=== PATIENT | male | born 1960 | race Caucasian/White ===

== ENCOUNTER 2021-06-21 11:26 | Inpatient (IN) | payer OTHER ==
[2021-06-21 13:00] VITALS: BMI 21.2
[2021-06-21] MEDS ORDERED: ONDANSETRON *ODT* 4 MG TABLET SL PRN (13:52)
[2021-06-21] MEDS ORDERED: BISMUTH SUBSALICYLATE 524 MG/30 ML PO PRN (13:52)
[2021-06-21] MEDS ORDERED: MAGNESIUM HYDROX 2400MG/30ML ORAL SUSPENSION 30 ML CUP PO PRN (13:52)
[2021-06-21] MEDS ORDERED: LORazepam 1 MG TABLET PO PRN (13:52)
[2021-06-21] MEDS ORDERED: MAGNESIUM CITRATE 300 ML BOTTLE PO PRN (13:52)
[2021-06-21] MEDS ORDERED: MENTHOL/PHENOL 1 EACH UD MM PRN (13:52)
[2021-06-21] MEDS ORDERED: NICOTINE POLACRILEX 2 MG GUM BUC PRN (13:52)
[2021-06-21] MEDS ORDERED: ACETAMINOPHEN 325 MG TABLET (FP) PO PRN ×2 (13:52)
[2021-06-21] MEDS ORDERED: METHOCARBAMOL 500 MG TABLET PO PRN (13:52)
[2021-06-21] MEDS ORDERED: MAG HYDROX/AL HYDROX/SIMETH 30 ML UNIT-DOSE CUP PO PRN (13:52)
[2021-06-21] MEDS ORDERED: IBUPROFEN 400 MG TABLET (FP) PO PRN (13:52)
[2021-06-21] MEDS: LORazepam 2 MG TABLET PO SCH ×2 (17:28→22:21)
[2021-06-21] MEDS: hydrOXYzine PAMOATE 25 MG CAPSULE (FP) PO SCH ×4 (17:28→22:20)
[2021-06-21] MEDS: MELATONIN 5 MG TABLETS PO SCH (22:20)
[2021-06-21] MEDS: THIAMINE HCL 100 MG TABLET (FP) PO SCH (22:20)
[2021-06-22] MEDS: hydrOXYzine PAMOATE 25 MG CAPSULE (FP) PO SCH ×5 (05:49→22:21)
[2021-06-22] MEDS: LORazepam 2 MG TABLET PO SCH ×4 (05:49→22:21)
[2021-06-22] MEDS: PRENATAL VITAMINS W/ FOLIC ACID TABLET (FP) PO SCH (10:35)
[2021-06-22] MEDS: NICOTINE 7 MG/24 HOURS TOPICAL PATCH TD SCH (10:35)
[2021-06-22] MEDS: SERTRALINE HCL 50 MG TABLET (FP) PO SCH (13:43)
[2021-06-22 14:56] LABS: HEMATOCRIT 39.9 % (35.4-49); HEMOGLOBIN 13.4 GM/dL (11.7-16.9); MCH 29.1 pg (25.7-33.7); MCHC 33.6 g/dl (32.0-35.9); MEAN CELL VOLUME 86.5 fl (80-96); MEAN PLT VOLUME 8.1 fl (7.5-11.1); PLATELET COUNT 249 10^3/uL (134-434); RBC 4.61 M/mm3 (4.00-5.60); RDW 14.8 % (11.9-15.9); WHITE BLOOD COUNT 5.6 K/mm3 (4.0-10.0)
[2021-06-22 15:01] LABS: CALCIUM 8.8 mg/dL (8.5-10.1)
[2021-06-22 15:02] LABS: ALBUMIN 3.7 g/dl (3.4-5.0); BLOOD UREA NITROGEN 11.3 mg/dL (7-18)
[2021-06-22 15:05] LABS: CREATININE 0.8 mg/dL (0.55-1.3)
[2021-06-22 15:06] LABS: BILIRUBIN,TOTAL 0.6 mg/dL (0.2-1)
[2021-06-22 16:07] LABS: HIV INTERPRETATION NEGATIVE (NEGATIVE)
[2021-06-22] MEDS: THIAMINE HCL 100 MG TABLET (FP) PO SCH (22:21)
[2021-06-22] MEDS: MELATONIN 5 MG TABLETS PO SCH (22:21)
[2021-06-22] MEDS: risperiDONE 1 MG TABLET PO SCH (22:21)
[2021-06-23] MEDS: LORazepam 1 MG TABLET PO SCH ×4 (06:42→22:25)
[2021-06-23] MEDS: hydrOXYzine PAMOATE 25 MG CAPSULE (FP) PO SCH ×2 (06:43→10:17)
[2021-06-23] MEDS: PRENATAL VITAMINS W/ FOLIC ACID TABLET (FP) PO SCH (10:17)
[2021-06-23] MEDS: SERTRALINE HCL 50 MG TABLET (FP) PO SCH (10:17)
[2021-06-23] MEDS: NICOTINE 7 MG/24 HOURS TOPICAL PATCH TD SCH (10:17)
[2021-06-23] MEDS ORDERED: hydrOXYzine PAMOATE 25 MG CAPSULE (FP) PO PRN (12:32)
[2021-06-23] MEDS: TAMSULOSIN HCL 0.4 MG CAP PO SCH (18:04)
[2021-06-23] MEDS: MELATONIN 5 MG TABLETS PO SCH (22:25)
[2021-06-23] MEDS: OXYBUTYNIN CHLORIDE 5 MG TABLET PO SCH (22:25)
[2021-06-23] MEDS: risperiDONE 1 MG TABLET PO SCH (22:25)
[2021-06-23] MEDS: THIAMINE HCL 100 MG TABLET (FP) PO SCH (22:25)
[2021-06-24] MEDS ORDERED: LORazepam 0.5 MG TABLET PO PRN
[2021-06-24] MEDS: LORazepam 0.5 MG TABLET PO SCH ×4 (06:07→22:26)
[2021-06-24] MEDS: SERTRALINE HCL 50 MG TABLET (FP) PO SCH (10:24)
[2021-06-24] MEDS: NICOTINE 7 MG/24 HOURS TOPICAL PATCH TD SCH (10:24)
[2021-06-24] MEDS: TAMSULOSIN HCL 0.4 MG CAP PO SCH (10:24)
[2021-06-24] MEDS: PRENATAL VITAMINS W/ FOLIC ACID TABLET (FP) PO SCH (10:24)
[2021-06-24] MEDS: OXYBUTYNIN CHLORIDE 5 MG TABLET PO SCH ×2 (10:24→22:26)
[2021-06-24] MEDS: risperiDONE 1 MG TABLET PO SCH (22:24)
[2021-06-24] MEDS: THIAMINE HCL 100 MG TABLET (FP) PO SCH (22:25)
[2021-06-24] MEDS: MELATONIN 5 MG TABLETS PO SCH (22:25)
[2021-06-25] MEDS ORDERED: LORazepam 0.5 MG TABLET PO ONE (05:00)
[2021-06-25 09:17] VITALS: BP 133/83; PULSE 57; TEMP 96.9
[2021-06-25] MEDS: NICOTINE 7 MG/24 HOURS TOPICAL PATCH TD SCH (10:18)
[2021-06-25] MEDS: PRENATAL VITAMINS W/ FOLIC ACID TABLET (FP) PO SCH (10:18)
[2021-06-25] MEDS: SERTRALINE HCL 50 MG TABLET (FP) PO SCH (10:18)
[2021-06-25] MEDS: OXYBUTYNIN CHLORIDE 5 MG TABLET PO SCH (10:18)
[2021-06-25] MEDS: TAMSULOSIN HCL 0.4 MG CAP PO SCH (10:19)
== END 2021-06-25 11:36 | disposition other institution (70) | DRG 775 ==
LOC: YASAS 11:26 → Y3N 15:11
PROVIDERS: ADMIT Allergy & Immunology; ATTEND Allergy & Immunology
PROC: HZ2ZZZZ Detoxification Services for Substance Abuse Treatment (ICD-10-PCS; principal; 2021-06-21)
DX: F10.230 Alcohol dependence with withdrawal, uncomplicated (principal); F12.20 Cannabis dependence, uncomplicated; F17.210 Nicotine dependence, cigarettes, uncomplicated; F10.282 Alcohol dependence with alcohol-induced sleep disorder; F10.24 Alcohol dependence with alcohol-induced mood disorder; F20.9 Schizophrenia, unspecified; F31.9 Bipolar disorder, unspecified; F99 Mental disorder, not otherwise specified; J45.909 Unspecified asthma, uncomplicated; E78.5 Hyperlipidemia, unspecified; N40.0 Benign prostatic hyperplasia without lower urinary tract symptoms; M54.5 Low back pain; G89.29 Other chronic pain; R76.11 Nonspecific reaction to tuberculin skin test without active tuberculosis; Z91.018 Allergy to other foods
CPT/HCPCS: 36415; 71046-TC-FY; 80053; 85027; 86780; 87389; 93005; 93010; C9803; J2794; U0003; U0005

== ENCOUNTER 2021-06-25 11:22 | Inpatient (IN) | payer OTHER ==
[2021-06-25] MEDS ORDERED: ACETAMINOPHEN 325 MG TABLET (FP) PO PRN (14:29)
[2021-06-25] MEDS ORDERED: MAGNESIUM HYDROX 2400MG/30ML ORAL SUSPENSION 30 ML CUP PO PRN (14:29)
[2021-06-25] MEDS ORDERED: P-EPHED 60MG/TRIPROLIDI 2.5MG TABLET PO PRN (14:29)
[2021-06-25] MEDS ORDERED: guaiFENesin 200 MG/10 ML 10 ML UNIT-DOSE CUPS PO PRN (14:29)
[2021-06-25] MEDS ORDERED: NICOTINE POLACRILEX 2 MG GUM BUC PRN (14:29)
[2021-06-25] MEDS ORDERED: MAG HYDROX/AL HYDROX/SIMETH 30 ML UNIT-DOSE CUP PO PRN (14:29)
[2021-06-25] MEDS ORDERED: MAGNESIUM CITRATE 300 ML BOTTLE PO PRN (14:29)
[2021-06-25] MEDS ORDERED: IBUPROFEN 400 MG TABLET (FP) PO PRN (14:29)
[2021-06-25] MEDS ORDERED: LOPERAMIDE HCL 2 MG CAPSULE PO PRN (14:29)
[2021-06-25] MEDS ORDERED: MENTHOL/PHENOL 1 EACH UD MM PRN (14:29)
[2021-06-25] MEDS: hydrOXYzine PAMOATE 25 MG CAPSULE (FP) PO SCH ×2 (17:50→21:09)
[2021-06-25] MEDS: THIAMINE HCL 100 MG TABLET (FP) PO SCH (21:09)
[2021-06-25] MEDS: risperiDONE 2 MG TABLET PO SCH (21:09)
[2021-06-25] MEDS: MELATONIN 5 MG TABLETS PO SCH (21:09)
[2021-06-26] MEDS: hydrOXYzine PAMOATE 25 MG CAPSULE (FP) PO SCH ×5 (06:23→21:21)
[2021-06-26] MEDS ORDERED: risperiDONE 2 MG TABLET PO SCH (10:00)
[2021-06-26] MEDS: PRENATAL VITAMINS W/ FOLIC ACID TABLET (FP) PO SCH (10:20)
[2021-06-26] MEDS: NICOTINE 7 MG/24 HOURS TOPICAL PATCH TD SCH (10:21)
[2021-06-26] MEDS: TAMSULOSIN HCL 0.4 MG CAP PO SCH (10:21)
[2021-06-26] MEDS: SERTRALINE HCL 50 MG TABLET (FP) PO SCH (10:21)
[2021-06-26] MEDS ORDERED: PNEUMOCOCCAL 23 VACCINE 0.5 ML VIAL IM ONE (12:00)
[2021-06-26] MEDS: THIAMINE HCL 100 MG TABLET (FP) PO SCH (21:21)
[2021-06-26] MEDS: MELATONIN 5 MG TABLETS PO SCH (21:21)
[2021-06-26] MEDS: risperiDONE 2 MG TABLET PO SCH (21:22)
[2021-06-27] MEDS: hydrOXYzine PAMOATE 25 MG CAPSULE (FP) PO SCH ×5 (06:29→21:03)
[2021-06-27] MEDS: TAMSULOSIN HCL 0.4 MG CAP PO SCH (08:50)
[2021-06-27] MEDS: PRENATAL VITAMINS W/ FOLIC ACID TABLET (FP) PO SCH (10:18)
[2021-06-27] MEDS: SERTRALINE HCL 50 MG TABLET (FP) PO SCH (10:18)
[2021-06-27] MEDS: NICOTINE 7 MG/24 HOURS TOPICAL PATCH TD SCH (10:18)
[2021-06-27] MEDS: MELATONIN 5 MG TABLETS PO SCH (21:03)
[2021-06-27] MEDS: risperiDONE 2 MG TABLET PO SCH (21:03)
[2021-06-27] MEDS: THIAMINE HCL 100 MG TABLET (FP) PO SCH (21:03)
[2021-06-28] MEDS: hydrOXYzine PAMOATE 25 MG CAPSULE (FP) PO SCH ×5 (06:24→21:37)
[2021-06-28] MEDS: TAMSULOSIN HCL 0.4 MG CAP PO SCH (07:31)
[2021-06-28] MEDS: PRENATAL VITAMINS W/ FOLIC ACID TABLET (FP) PO SCH (09:50)
[2021-06-28] MEDS: NICOTINE 7 MG/24 HOURS TOPICAL PATCH TD SCH (09:50)
[2021-06-28] MEDS: SERTRALINE HCL 50 MG TABLET (FP) PO SCH (09:50)
[2021-06-28] MEDS: THIAMINE HCL 100 MG TABLET (FP) PO SCH (21:37)
[2021-06-28] MEDS: OXYBUTYNIN CHLORIDE 5 MG TABLET PO SCH (21:37)
[2021-06-28] MEDS: MELATONIN 5 MG TABLETS PO SCH (21:37)
[2021-06-28] MEDS: risperiDONE 2 MG TABLET PO SCH (21:37)
[2021-06-29] MEDS: hydrOXYzine PAMOATE 25 MG CAPSULE (FP) PO SCH ×5 (06:40→21:07)
[2021-06-29] MEDS: TAMSULOSIN HCL 0.4 MG CAP PO SCH (07:32)
[2021-06-29] MEDS: PRENATAL VITAMINS W/ FOLIC ACID TABLET (FP) PO SCH (09:38)
[2021-06-29] MEDS: SERTRALINE HCL 50 MG TABLET (FP) PO SCH (09:39)
[2021-06-29] MEDS: OXYBUTYNIN CHLORIDE 5 MG TABLET PO SCH ×2 (09:39→21:07)
[2021-06-29] MEDS: NICOTINE 7 MG/24 HOURS TOPICAL PATCH TD SCH (10:22)
[2021-06-29] MEDS: risperiDONE 2 MG TABLET PO SCH (21:07)
[2021-06-29] MEDS: MELATONIN 5 MG TABLETS PO SCH (21:07)
[2021-06-29] MEDS: THIAMINE HCL 100 MG TABLET (FP) PO SCH (21:07)
[2021-06-30] MEDS: hydrOXYzine PAMOATE 25 MG CAPSULE (FP) PO SCH ×5 (06:35→21:25)
[2021-06-30] MEDS: SERTRALINE HCL 50 MG TABLET (FP) PO SCH (09:55)
[2021-06-30] MEDS: OXYBUTYNIN CHLORIDE 5 MG TABLET PO SCH ×2 (09:55→21:25)
[2021-06-30] MEDS: PRENATAL VITAMINS W/ FOLIC ACID TABLET (FP) PO SCH (09:55)
[2021-06-30] MEDS: NICOTINE 7 MG/24 HOURS TOPICAL PATCH TD SCH (09:55)
[2021-06-30] MEDS: TAMSULOSIN HCL 0.4 MG CAP PO SCH (09:55)
[2021-06-30] MEDS: THIAMINE HCL 100 MG TABLET (FP) PO SCH (21:25)
[2021-06-30] MEDS: MELATONIN 5 MG TABLETS PO SCH (21:25)
[2021-06-30] MEDS: risperiDONE 2 MG TABLET PO SCH (21:25)
[2021-07-01] MEDS: hydrOXYzine PAMOATE 25 MG CAPSULE (FP) PO SCH ×5 (06:28→21:07)
[2021-07-01] MEDS: TAMSULOSIN HCL 0.4 MG CAP PO SCH (08:45)
[2021-07-01] MEDS: SERTRALINE HCL 50 MG TABLET (FP) PO SCH (09:45)
[2021-07-01] MEDS: PRENATAL VITAMINS W/ FOLIC ACID TABLET (FP) PO SCH (09:45)
[2021-07-01] MEDS: OXYBUTYNIN CHLORIDE 5 MG TABLET PO SCH ×2 (09:45→21:07)
[2021-07-01] MEDS: NICOTINE 7 MG/24 HOURS TOPICAL PATCH TD SCH (09:47)
[2021-07-01] MEDS: THIAMINE HCL 100 MG TABLET (FP) PO SCH (21:07)
[2021-07-01] MEDS: MELATONIN 5 MG TABLETS PO SCH (21:07)
[2021-07-01] MEDS: risperiDONE 2 MG TABLET PO SCH (21:07)
[2021-07-02] MEDS: hydrOXYzine PAMOATE 25 MG CAPSULE (FP) PO SCH ×5 (06:30→21:22)
[2021-07-02] MEDS: TAMSULOSIN HCL 0.4 MG CAP PO SCH (08:40)
[2021-07-02] MEDS: PRENATAL VITAMINS W/ FOLIC ACID TABLET (FP) PO SCH (10:04)
[2021-07-02] MEDS: NICOTINE 7 MG/24 HOURS TOPICAL PATCH TD SCH (10:04)
[2021-07-02] MEDS: OXYBUTYNIN CHLORIDE 5 MG TABLET PO SCH ×2 (10:04→21:23)
[2021-07-02] MEDS: SERTRALINE HCL 50 MG TABLET (FP) PO SCH (10:26)
[2021-07-02] MEDS: MELATONIN 5 MG TABLETS PO SCH (21:22)
[2021-07-02] MEDS: risperiDONE 2 MG TABLET PO SCH (21:22)
[2021-07-02] MEDS: THIAMINE HCL 100 MG TABLET (FP) PO SCH (21:22)
[2021-07-02] MEDS ORDERED: PT OWN MED DRAWER 7, Y5N ONE (21:23)
[2021-07-03] MEDS: hydrOXYzine PAMOATE 25 MG CAPSULE (FP) PO SCH ×5 (06:21→21:06)
[2021-07-03] MEDS: NICOTINE 7 MG/24 HOURS TOPICAL PATCH TD SCH (09:54)
[2021-07-03] MEDS: PRENATAL VITAMINS W/ FOLIC ACID TABLET (FP) PO SCH (09:54)
[2021-07-03] MEDS: SERTRALINE HCL 50 MG TABLET (FP) PO SCH (09:54)
[2021-07-03] MEDS: OXYBUTYNIN CHLORIDE 5 MG TABLET PO SCH ×2 (09:55→21:07)
[2021-07-03] MEDS ORDERED: PT OWN MED DRAWER 7, Y5N ONE (09:55)
[2021-07-03] MEDS: TAMSULOSIN HCL 0.4 MG CAP PO SCH (09:56)
[2021-07-03] MEDS: THIAMINE HCL 100 MG TABLET (FP) PO SCH (21:07)
[2021-07-03] MEDS: MELATONIN 5 MG TABLETS PO SCH (21:07)
[2021-07-03] MEDS: risperiDONE 2 MG TABLET PO SCH (21:07)
[2021-07-04] MEDS: hydrOXYzine PAMOATE 25 MG CAPSULE (FP) PO SCH ×5 (06:35→21:11)
[2021-07-04] MEDS: TAMSULOSIN HCL 0.4 MG CAP PO SCH (07:51)
[2021-07-04] MEDS: NICOTINE 7 MG/24 HOURS TOPICAL PATCH TD SCH (10:13)
[2021-07-04] MEDS: SERTRALINE HCL 50 MG TABLET (FP) PO SCH (10:13)
[2021-07-04] MEDS: PRENATAL VITAMINS W/ FOLIC ACID TABLET (FP) PO SCH (10:13)
[2021-07-04] MEDS: OXYBUTYNIN CHLORIDE 5 MG TABLET PO SCH ×2 (10:14→21:11)
[2021-07-04] MEDS: risperiDONE 2 MG TABLET PO SCH (21:11)
[2021-07-04] MEDS: MELATONIN 5 MG TABLETS PO SCH (21:11)
[2021-07-04] MEDS: THIAMINE HCL 100 MG TABLET (FP) PO SCH (21:11)
[2021-07-05] MEDS: hydrOXYzine PAMOATE 25 MG CAPSULE (FP) PO SCH ×5 (06:14→21:08)
[2021-07-05] MEDS: TAMSULOSIN HCL 0.4 MG CAP PO SCH (10:02)
[2021-07-05] MEDS: OXYBUTYNIN CHLORIDE 5 MG TABLET PO SCH ×2 (10:02→21:08)
[2021-07-05] MEDS: PRENATAL VITAMINS W/ FOLIC ACID TABLET (FP) PO SCH (10:02)
[2021-07-05] MEDS: SERTRALINE HCL 50 MG TABLET (FP) PO SCH (10:02)
[2021-07-05] MEDS: NICOTINE 7 MG/24 HOURS TOPICAL PATCH TD SCH (10:02)
[2021-07-05] MEDS: MELATONIN 5 MG TABLETS PO SCH (21:07)
[2021-07-05] MEDS: THIAMINE HCL 100 MG TABLET (FP) PO SCH (21:07)
[2021-07-05] MEDS: risperiDONE 2 MG TABLET PO SCH (21:08)
[2021-07-06] MEDS: hydrOXYzine PAMOATE 25 MG CAPSULE (FP) PO SCH ×5 (06:19→21:33)
[2021-07-06] MEDS: NICOTINE 7 MG/24 HOURS TOPICAL PATCH TD SCH (10:12)
[2021-07-06] MEDS: SERTRALINE HCL 50 MG TABLET (FP) PO SCH (10:12)
[2021-07-06] MEDS: OXYBUTYNIN CHLORIDE 5 MG TABLET PO SCH ×2 (10:12→21:33)
[2021-07-06] MEDS: PRENATAL VITAMINS W/ FOLIC ACID TABLET (FP) PO SCH (10:12)
[2021-07-06] MEDS: TAMSULOSIN HCL 0.4 MG CAP PO SCH (10:12)
[2021-07-06] MEDS: MELATONIN 5 MG TABLETS PO SCH (21:33)
[2021-07-06] MEDS: risperiDONE 2 MG TABLET PO SCH (21:33)
[2021-07-06] MEDS: THIAMINE HCL 100 MG TABLET (FP) PO SCH (21:33)
[2021-07-07] MEDS: hydrOXYzine PAMOATE 25 MG CAPSULE (FP) PO SCH ×5 (06:23→21:21)
[2021-07-07] MEDS ORDERED: MASKS NR ONE (06:25)
[2021-07-07] MEDS: TAMSULOSIN HCL 0.4 MG CAP PO SCH (08:47)
[2021-07-07] MEDS: PRENATAL VITAMINS W/ FOLIC ACID TABLET (FP) PO SCH (09:46)
[2021-07-07] MEDS: OXYBUTYNIN CHLORIDE 5 MG TABLET PO SCH ×2 (09:47→21:20)
[2021-07-07] MEDS: NICOTINE 7 MG/24 HOURS TOPICAL PATCH TD SCH (09:47)
[2021-07-07] MEDS: SERTRALINE HCL 50 MG TABLET (FP) PO SCH (10:10)
[2021-07-07] MEDS: risperiDONE 2 MG TABLET PO SCH (21:20)
[2021-07-07] MEDS: THIAMINE HCL 100 MG TABLET (FP) PO SCH (21:20)
[2021-07-07] MEDS: MELATONIN 5 MG TABLETS PO SCH (21:21)
[2021-07-08] MEDS ORDERED: PT OWN MED DRAWER 7, Y5N ONE ×3 (03:11→19:12)
[2021-07-08] MEDS: hydrOXYzine PAMOATE 25 MG CAPSULE (FP) PO SCH ×5 (06:10→21:37)
[2021-07-08] MEDS: TAMSULOSIN HCL 0.4 MG CAP PO SCH (07:58)
[2021-07-08] MEDS: NICOTINE 7 MG/24 HOURS TOPICAL PATCH TD SCH (10:30)
[2021-07-08] MEDS: PRENATAL VITAMINS W/ FOLIC ACID TABLET (FP) PO SCH (10:30)
[2021-07-08] MEDS: SERTRALINE HCL 50 MG TABLET (FP) PO SCH (10:30)
[2021-07-08] MEDS: OXYBUTYNIN CHLORIDE 5 MG TABLET PO SCH ×2 (10:30→21:37)
[2021-07-08 17:24] LABS: EPI CELLS 1 /uL (0-25.1); HYALINE CASTS 0 /uL (0-3.1); URINE APPEARANCE CLEAR; URINE BACTERIA 1 /uL (0-1359); URINE BILIRUBIN NEGATIVE (NEGATIVE); URINE COLOR YELLOW; URINE GLUCOSE (UA) NEGATIVE (NEGATIVE); URINE KETONE NEGATIVE (NEGATIVE); URINE LEUK ESTERASE NEGATIVE (NEGATIVE); URINE NITRITE NEGATIVE (NEGATIVE); URINE PROTEIN NEGATIVE (NEGATIVE); URINE RBC 25 /uL (0-23.9); URINE UROBILINOGEN 0.2 mg/dL (0.2-1.0); URINE WBC 6 /uL (0-25.8)
[2021-07-08] MEDS: MELATONIN 5 MG TABLETS PO SCH (21:37)
[2021-07-08] MEDS: THIAMINE HCL 100 MG TABLET (FP) PO SCH (21:37)
[2021-07-08] MEDS: risperiDONE 2 MG TABLET PO SCH (21:37)
[2021-07-09] MEDS: hydrOXYzine PAMOATE 25 MG CAPSULE (FP) PO SCH ×5 (06:24→21:12)
[2021-07-09] MEDS: TAMSULOSIN HCL 0.4 MG CAP PO SCH (07:31)
[2021-07-09] MEDS: PRENATAL VITAMINS W/ FOLIC ACID TABLET (FP) PO SCH (10:18)
[2021-07-09] MEDS: SERTRALINE HCL 50 MG TABLET (FP) PO SCH (10:18)
[2021-07-09] MEDS: NICOTINE 7 MG/24 HOURS TOPICAL PATCH TD SCH (10:18)
[2021-07-09] MEDS: OXYBUTYNIN CHLORIDE 5 MG TABLET PO SCH ×2 (10:18→21:12)
[2021-07-09] MEDS ORDERED: PT OWN MED DRAWER 7, Y5N ONE (19:30)
[2021-07-09] MEDS: THIAMINE HCL 100 MG TABLET (FP) PO SCH (21:12)
[2021-07-09] MEDS: risperiDONE 2 MG TABLET PO SCH (21:12)
[2021-07-09] MEDS: MELATONIN 5 MG TABLETS PO SCH (21:12)
[2021-07-10] MEDS: hydrOXYzine PAMOATE 25 MG CAPSULE (FP) PO SCH ×2 (06:35→09:19)
[2021-07-10 06:56] VITALS: BP 131/85; PULSE 101; TEMP 96.8
[2021-07-10] MEDS: PRENATAL VITAMINS W/ FOLIC ACID TABLET (FP) PO SCH (09:19)
[2021-07-10] MEDS: OXYBUTYNIN CHLORIDE 5 MG TABLET PO SCH (09:20)
[2021-07-10] MEDS: NICOTINE 7 MG/24 HOURS TOPICAL PATCH TD SCH (09:20)
[2021-07-10] MEDS: SERTRALINE HCL 50 MG TABLET (FP) PO SCH (09:20)
[2021-07-10] MEDS: TAMSULOSIN HCL 0.4 MG CAP PO SCH (09:20)
== END 2021-07-10 09:28 | disposition home or self-care (01) | DRG 772 ==
LOC: YASAS 11:22 → Y3W 11:27
PROVIDERS: ADMIT Allergy & Immunology; ATTEND Allergy & Immunology
PROC: HZ42ZZZ Group Counseling for Substance Abuse Treatment, Cognitive-Behavioral (ICD-10-PCS; principal; 2021-06-25)
DX: F10.20 Alcohol dependence, uncomplicated (principal); F12.20 Cannabis dependence, uncomplicated; F17.210 Nicotine dependence, cigarettes, uncomplicated; F20.9 Schizophrenia, unspecified; J45.909 Unspecified asthma, uncomplicated; N40.0 Benign prostatic hyperplasia without lower urinary tract symptoms; E78.5 Hyperlipidemia, unspecified; M54.5 Low back pain; G89.29 Other chronic pain; Z87.438 Personal history of other diseases of male genital organs; Z86.11 Personal history of tuberculosis; Z56.0 Unemployment, unspecified
CPT/HCPCS: 81003; 90732; G0009